=== PATIENT | female | born 1985 | race African-American/Black ===

== ENCOUNTER 2019-01-08 11:28 | Emergency (ER) | payer OTHER, SELFPAY | END 2019-01-08 12:44 | disposition home or self-care (01) | LOC: ERS 11:28 | DX: J02.9 Acute pharyngitis, unspecified (principal) | CPT/HCPCS: 87081; 87430; 99284 ==

== ENCOUNTER 2019-01-29 02:25 | Emergency (ER) | payer SELFPAY ==
[2019-01-29 03:27] LABS: #Basophils 0.1 thou/uL (0.0-0.2); #Eosinphils 0.4 thou/uL (0.0-0.7); #Lymphocytes 3.5 thou/uL (1.20-3.40); #Monocytes 1.1 thou/uL (0.11-0.59); #Neutrophils 11.9 thou/uL (1.40-6.50); %Basophils 0.4 % (0.0-1.0); %Eosinophils 2.1 % (0.0-10.0); %Lymphocytes 20.9 % (21.0-51.0); %Monocytes 6.5 % (0.0-10.0); %Neutrophils 70.1 % (42.0-75.0); Hemoglobin 11.8 g/dL (12.0-16.0); Mean Corpuscular HGB CONC 31.3 g/dL (32.0-36.0); Mean Corpuscular Hemoglobin 26.9 pg (27.0-31.0); Mean Platelet Volume 6.7 fL (7.4-10.4); Platelet Count 447 thou/uL (130-400); RBC Distribution Width 13.5 % (11.5-14.5); Red Blood Cell (RBC) Count 4.39 mill/uL (4.20-5.40)
[2019-01-29 03:39] LABS: BHCG - Serum Negative (NEGATIVE); Pregs Control Background? CLEAR/WHITE (CLR/WHITE); Pregs Control Bar Appear? YES (CONTROL BAR)
[2019-01-29] MEDS ORDERED: Ketorolac Tromethamine 30 MG/ML VIAL ONE (04:36)
[2019-01-29 04:58] LABS: ALT (SGPT) 10 U/L (8-55); AST (SGOT) 10 U/L (5-34); Albumin 3.6 g/dL (3.5-5.0); Alkaline Phosphatase 87 U/L (40-150); Anion Gap 14 mmol/L (10-20); BUN (Urea Nitrogen) 14 mg/dL (7.0-18.7); Bilirubin, Total 0.2 mg/dL (0.2-1.2); Calc. Creatinine Clearance 0 mL/min (70-130); Calcium 9.4 mg/dL (7.8-10.44); Carbon Dioxide 27 mmol/L (22-29); Chloride 103 mmol/L (98-107); Estimated GFR-MDRD Greater than 90; Globulin 4.2 g/dL (2.4-3.5); Glucose 81 mg/dL (70-105); Potassium 3.9 mmol/L (3.5-5.1); Protein, Total 7.8 g/dL (6.0-8.3); Sodium 140 mmol/L (136-145)
[2019-01-29 07:12] LABS: Troponin I Less than 0.010 ng/mL (< 0.028)
--- NOTE | 2019-01-29 08:00 | RAD ---
CHEST 2 VIEWS: Date: 01/29/19 HISTORY: Chest pain. COMPARISON: 09/12/15. FINDINGS: Heart size is normal. The lungs are clear. IMPRESSION: No acute intrathoracic disease. Stable from prior study. POS: [facility]
== END 2019-01-29 07:36 | disposition home or self-care (01) ==
LOC: ERS 02:25
DX: R07.89 Other chest pain (principal)
CPT/HCPCS: 36415; 71046; 80053; 83880; 84484; 84703; 85025; 93005; 96372; J1885

== ENCOUNTER 2019-10-29 17:46 | Emergency (ER) | payer SELFPAY ==
--- NOTE | 2019-10-29 19:35 | RAD ---
EXAM: Chest Two Views 10/29/2019 7:32 PM HISTORY: Wheezing COMPARISON: January 29, 2019 FINDINGS: Heart: Normal in size and contour. Pulmonary vessels: Normal. Costophrenic angles: Clear. Lungs: No acute airspace consolidation. Pneumothorax: None. Osseous structures:Intact. Additional findings: Cholecystectomy clips within the right upper quadrant. IMPRESSION: No significant acute intrathoracic disease.
== END 2019-10-29 20:05 | disposition home or self-care (01) ==
LOC: ERS 17:46
DX: J20.9 Acute bronchitis, unspecified (principal)
CPT/HCPCS: 71046; 87804; J7620

== ENCOUNTER 2020-08-05 14:20 | Emergency (ER) | payer OTHER, SELFPAY ==
[2020-08-06 13:30] LABS: SARS-CoV-2 MS2 Positive; SARS-CoV-2 N Gene Negative; SARS-CoV-2 S Gene Negative; SARS-CoV-2 by NAA Not Detected (NotDetected); SARS-CoV-2 orf1ab Negative
== END 2020-08-05 14:50 | disposition home or self-care (01) ==
LOC: ERS 14:20
DX: R09.81 Nasal congestion (principal); R09.89 Other specified symptoms and signs involving the circulatory and respiratory systems; R19.7 Diarrhea, unspecified; Z20.828 Contact with and (suspected) exposure to other viral communicable diseases
CPT/HCPCS: 87635; 99283; U0003

== ENCOUNTER 2021-12-23 22:15 | Emergency (ER) | payer SELFPAY | END 2021-12-23 23:14 | disposition left against medical advice (07) | LOC: ERS 22:15 | DX: Z53.21 Procedure and treatment not carried out due to patient leaving prior to being seen by health care provider (principal) ==